=== PATIENT | female | born 1990 | race Caucasian/White ===

== ENCOUNTER 2017-05-25 05:36 | Day surgery (SDC) | payer OTHER ==
[2017-05-24 13:55] VITALS: BMI 26.7
[2017-05-25] MEDS ORDERED: MIDAZOLAM HCL 2 MG/2 ML SINGLE DOSE VIAL ONE (09:03)
[2017-05-25] MEDS ORDERED: ceFAZolin SODIUM 1 GM VIAL ONE (09:03)
[2017-05-25] MEDS ORDERED: DEXAMETHASONE SOD PHOSPHATE 4 MG/1 ML VIAL ONE (09:03)
[2017-05-25] MEDS ORDERED: KETOROLAC TROMETHAMINE 30 MG/1 ML VIAL ONE (09:03)
[2017-05-25] MEDS ORDERED: ONDANSETRON 4 MG/2 ML VIAL IVPUSH PRN (10:34)
[2017-05-25] MEDS ORDERED: oxyCODONE HCL 5 MG TABLET PO PRN ×2 (10:34)
[2017-05-25] MEDS ORDERED: LACTATED RINGERS SOLUTION 1,000 ML IV SCH (10:45)
[2017-05-25] MEDS ORDERED: IBUPROFEN 400 MG TABLET (FP) PO PRN (11:17)
[2017-05-25] MEDS ORDERED: ACETAMINOPHEN 325 MG TABLET (FP) PO PRN (11:17)
--- NOTE | 2017-05-25 11:17 | HP ---
History & Physical Update - History History: No Change - Physical Physical: No Change - Assessment Assessment: No Change - Plan Plan: No Change
--- NOTE | 2017-05-25 11:23 | OP ---
Operative Note - Note: Operative Date: 05/25/17 Pre-Operative Diagnosis: Missed Operation: Suction DC Post-Operative Diagnosis: Same as Pre-op Surgeon: Kaylene Corcoran Anesthesia: General Estimated Blood Loss (mls): 30 Operative Report Dictated: Yes
[2017-05-25] MEDS ORDERED: RHO(D) IMMUNE GLOBULIN 1,500 UNIT DISP.SYRIN IM ONE (11:49)
[2017-05-25 15:06] VITALS: TEMP 98.1
[2017-05-25 15:14] VITALS: BP 110/70; PULSE 68
--- NOTE | 2017-05-25 15:45 | OP ---
DATE OF OPERATION: 05/25/2017 PREOPERATIVE DIAGNOSIS: Missed . OPERATION: Suction dilatation and curettage. POSTOPERATIVE DIAGNOSIS: Missed . SURGEON: Kaylene Corcoran MD ANESTHESIA: General. DESCRIPTION OF PROCEDURE: Patient was taken to the operating room, placed in dorsal lithotomy position, prepped and draped in the usual sterile fashion. A timeout was performed in accordance with hospital regulation. Cervix then dilated to accommodate number 8 suction curette. Suction curettage was then performed. Specimen submitted to Pathology. All contents were emptied. All instruments then removed. The patient had tolerated the procedure well. ESTIMATED BLOOD LOSS: 30 mL KAYLENE CORCORAN M.D. [id number]
--- NOTE | 2017-05-26 17:32 | PATH ---
Surgical Pathology Report Patient Name: BEATRICE ADAMES Med. Rec. #: [id number] /Age/Gender: 1990 (Age: 26) / F Account: [id number] Location: [facility] SURGICAL Taken: 05/25/2017 Received: 05/25/2017 Reported: 05/26/2017 Physicians: Kaylene Corcoran M.D. 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 CHROMOSOMAL ANALYSIS IS PENDING. RESULTS WILL BE REPORTED AN ADDENDUM. Electronically Signed Ivette Mortensen M.D. Gross Description Received fresh labeled "products of conception for chromosome analysis," is a 9.5 x 9.0 x 1.2 cm aggregate of acharya red soft tissue fragments. Villous tissue is identified. No definite somatic tissue is identified. A environmental marketing representative portion is placed in RPMI solution and sent for chromosomal analysis. An additional environmental marketing representative portion is submitted in one cassette. 05/25/2017 [facility]05/25/2017
== END 2017-05-25 15:00 | disposition home or self-care (01) ==
LOC: JASU-SURG 05:36
PROVIDERS: ATTEND Obstetrics & Gynecology
PROC: 10D17ZZ Extraction of Products of Conception, Retained, Via Natural or Artificial Opening (ICD-10-PCS; principal; 2017-05-25 09:30)
DX: O02.1 Missed abortion (principal)
CPT/HCPCS: 86900; 86999; 88305-TC; 94760; J1561